=== PATIENT | female | born 1995 | race Caucasian/White ===

== ENCOUNTER 2021-11-22 17:19 | Emergency (ER) | payer OTHER ==
[~2021-11-22] VITALS: Ht 162.6 cm; Wt 58.1 kg
[2021-11-22 17:20] VITALS: BP_SYST 124
--- NOTE | 2021-11-22 17:21 | NUR ---
BROUGHT IN BY [facility], PLACED IN BED #4 AND TRIAGED. REPORT GIVEN TO ROMAIN
[2021-11-22] MEDS ORDERED: EPINEPHRINE HCL/PF 1 MG/ML AMP IM ONE (17:30)
--- NOTE | 2021-11-22 17:30 | NUR ---
ED MD DAVIES AT BEDSIDE
--- NOTE | 2021-11-22 17:45 | NUR ---
RECEIVED PT IN BED #4, BIB ALS FROM [facility] FOR CC OF RASH, SWELLING, AND ALLERGIC REACTION TO A BEE STING. PT IS AAOx3, NAD, VSS, STABLE, WAS GIVEN BENADRYL ORAL ON THE RIG. PT TO BE FURTHER ASSESSED BY ED MD FOR PLAN OF CARE WITH DISPOSITION.
[2021-11-22] MEDS ORDERED: predniSONE 20 MG TABLET PO ONE (19:15)
[2021-11-22] MEDS ORDERED: DIPHENHYDRAMINE HCL 50 MG CAPSULE PO ONE (19:15)
[2021-11-22] MEDS ORDERED: EPIN0.3P3 IM (19:25)
[2021-11-22] MEDS ORDERED: BEN50 PO (19:26)
[2021-11-22] MEDS ORDERED: PRED20TA PO (19:27)
--- NOTE | 2021-11-22 20:11 | NUR ---
MD Garcia changed med order, medication thrown out
[2021-11-22] MEDS ORDERED: DIPHENHYDRAMINE INJ 50 MG/ML VIAL IM ONE (20:15)
[2021-11-22] MEDS ORDERED: EPINEPHrine HCL 1 MG/ML VIAL IM ONE (20:15)
[2021-11-22] MEDS ORDERED: EPINEPHRINE HCL/PF 1 MG/ML AMP ONE (20:24)
--- NOTE | 2021-11-22 20:42 | NUR ---
Amber jacobjuan in ED - 11/22/21 at 2120 by [email or web address] MD MOONEY AT THE BEDSIDE FOR IN PERSON EVALUATION OF PT. AT REQUEST OF PT HE WILL BE DISCHARGED. ADMITTING NOTIFIED. PENDING DISCHARGE AT THIS TIME
[2021-11-22 20:45] VITALS: BP_SYST 125
--- NOTE | 2021-11-22 21:20 | NUR ---
PT HIVES, REDNESS AND ITCHINESS IS BETTER PER PT. PT REPORTS THROAT SENSATION OF CLOSING IS RELIEVED. OXYGEN AT 100 %. PT PENDING DISCHARGE
--- NOTE | 2021-11-22 21:37 | NUR ---
PT DISCHARGED IN STABLE CONDITION, WITH NEW PRESCRIPTION. NO IV. PT ACCOMPANIED BY , DISCHARGED WITH ALL BELONGINGS PT ENCOURAGED TO FOLLOW UP WITH PRIMARY CARE DOCTOR FOR REFFERAL TO [facility] FOR FOLLOW UP. UNDERSTANDING VERBALIZED
== END 2021-11-22 21:37 | disposition home or self-care (01) ==
LOC: SED 17:19
DX: T63.441A Toxic effect of venom of bees, accidental (unintentional), initial encounter (principal); L50.9 Urticaria, unspecified; Y92.89 Other specified places as the place of occurrence of the external cause
CPT/HCPCS: 93005; 96372; 99284; J0171; J1200; J7512; Q0163